=== PATIENT | female | born 1980 | race Caucasian/White ===

== ENCOUNTER 2023-11-11 08:55 | Emergency (ER) | payer SELFPAY ==
[2023-11-11] MEDS ORDERED: Ketorolac 60 MG/2 ML SDV IM ONE (09:17)
== END 2023-11-11 12:30 | disposition home or self-care (01) ==
LOC: JD.ED 08:55
DX: M54.41 Lumbago with sciatica, right side (principal); M48.061 Spinal stenosis, lumbar region without neurogenic claudication
CPT/HCPCS: 72148; 96372; 99284; J1885; 99283

== ENCOUNTER 2025-04-03 09:59 | Emergency (ER) | payer BC ==
[2025-04-03] MEDS: LORazepam 2 MG/ML SDV IVPUSH ONE ×2 (10:07→13:20)
[2025-04-03] MEDS: LORazepam 2 MG/ML SDV ONE (10:16)
[2025-04-03 10:19] LABS: BASOPHILS PERCENT AUTO 0.3 % (0.0-1.0); EOSINOPHILS ABSOLUTE AUTO 0.2 K/mm3 (0.0-0.4); EOSINOPHILS PERCENT AUTO 1.2 % (0.0-6.0); HEMATOCRIT 44.7 % (37.0-47.0); IMMATURE GRAN ABSOLUTE AUTO 0.07 K/mm3 (0.00-0.05); IMMATURE GRAN PERCENT AUTO 0.4 % (0.0-0.4); LYMPHOCYTES ABSOLUTE AUTO 2.7 K/mm3 (1.0-4.8); LYMPHOCYTES PERCENT AUTO 16.9 % (24.0-44.0); MEAN CORPUSCULAR HEMOGLOBIN 30.6 pg (28.0-32.0); MEAN CORPUSCULAR HGB CONC 33.6 g/dl (32.0-36.0); MEAN CORPUSCULAR VOLUME 91.2 fl (83.0-99.0); MEAN PLATELET VOLUME 11.4 fl (9.4-12.3); NEUTROPHILS ABSOLUTE AUTO 11.8 K/mm3 (1.8-7.7); NEUTROPHILS PERCENT AUTO 75.2 % (41.0-71.0); WHITE BLOOD CELL COUNT,WBC 15.72 K/mm3 (3.9-11.3)
[2025-04-03 10:30] LABS: PLATELET COUNT,PLT 141 K/mm3 (150-400)
[2025-04-03 10:35] LABS: INR 0.97; PROTHROMBIN TIME 10.3 SECONDS (9.7-12.0)
[2025-04-03 10:53] LABS: A/G RATIO 1.1 (1-2); ALBUMIN 3.9 g/dl (3.4-5.0); ANION GAP 15.9 (5-15); BILIRUBIN TOTAL 0.8 mg/dL (0.2-1.0); BUN/CREATININE RATIO 15.6 (14-18); CALCIUM 9.1 mg/dL (8.5-10.1); CREATININE 0.9 mg/dL (0.55-1.02); EST CRCL DRUG DOSING (CG) 82.14 mL/min; MAGNESIUM 2.1 mg/dL (1.8-2.4); PROTEIN TOTAL,TP 7.5 g/dl (6.4-8.2)
[2025-04-03 10:55] LABS: POTASSIUM,K 3.9 mEq/L (3.5-5.1)
== END 2025-04-03 14:08 ==
LOC: MERGE 09:59 → JD.ED 09:59
DX: I25.42 Coronary artery dissection (principal); I82.210 Acute embolism and thrombosis of superior vena cava; I25.119 Atherosclerotic heart disease of native coronary artery with unspecified angina pectoris; I50.9 Heart failure, unspecified; I25.2 Old myocardial infarction; Z79.01 Long term (current) use of anticoagulants; Z79.82 Long term (current) use of aspirin; Z79.899 Other long term (current) drug therapy; Z87.891 Personal history of nicotine dependence
CPT/HCPCS: 36415; 71045; 80053; 82550; 83690; 83735; 83880; 84484; 85025; 85610; 93005; 93306; 96374; 96376; 99285; J2060; 93010